=== PATIENT | female | born 1965 | race Caucasian/White ===

== ENCOUNTER 2020-01-03 07:31 | Outpatient (CLI) | payer BC, SELFPAY ==
--- NOTE | 2020-01-03 07:53 | MM_ITS ---
WS: [id number] BILATERAL DIGITAL SCREENING MAMMOGRAPHY WITH CAD CLINICAL INFORMATION: SCREENING HISTORY: Screening mammogram. No current complaints. COMPARISON: January 20, 2018 TECHNIQUE: Bilateral CC and MLO views. FINDINGS: Scattered fibroglandular densities bilaterally. No suspicious focal mass, asymmetry, calcifications, or architectural distortion. No evidence of malignancy. A few punctate calcifications. MM/[id number] IMPRESSION: BI-RADS: 2-Benign FOLLOW UP: 1 Year Follow-up Recommend return to annual screening mammography.
== END 2020-01-03 07:32 | disposition home or self-care (01) ==
LOC: RADSHAW 07:34
PROVIDERS: PCP Family Medicine; Visit Provider Family Medicine
DX: Z12.31 Encounter for screening mammogram for malignant neoplasm of breast (principal)
CPT/HCPCS: 77067

== ENCOUNTER 2021-03-23 07:36 | Outpatient (CLI) | payer OTHER, SELFPAY ==
--- NOTE | 2021-03-23 07:46 | MM_ITS ---
WS: [id number] BILATERAL SCREENING DIGITAL MAMMOGRAM WITH CAD HISTORY: SCREENING COMPARISON: 01/03/2020 and 01/20/2018 Bilateral CC and MLO views submitted. Computer aided detection analyzed. Breast composition: There are scattered areas of fibroglandular density. No suspicious masses, microc alcifications or architectural distortion. Benign calcifications in each breast. Long-term stability of a nodule in the upper outer quadrant of the RIGHT breast at a middle depth. MM/[id number] IMPRESSION: BI-RADS: 2-Benign FOLLOW UP: 1 Year Follow-up
== END 2021-03-23 07:37 | disposition home or self-care (01) ==
PROVIDERS: PCP Family Medicine; Visit Provider Family Medicine
DX: Z12.31 Encounter for screening mammogram for malignant neoplasm of breast (principal)
CPT/HCPCS: 77067

== ENCOUNTER 2022-09-12 16:43 | Emergency (ER) | payer OTHER, SELFPAY ==
[2022-09-12 16:43] VITALS: BP 156/89; PULSE 97; RESP 16; TEMP 36.9; O2SAT 99; BMI 29.8
--- NOTE | 2022-09-12 16:58 | W.ED.WOUNDLC ---
HPI - Wound/Laceration General: Chief Complaint: Wound/Laceration Stated Complaint: facial lac Time Seen by Provider: 09/12/22 16:56 History of Present Illness: 57-year-old female comes in today with laceration to the left facial cheek. Patient was working with one of her horses when it struck out at her catching her to her right facial cheek. Patient has a 5 cm facial laceration. Patient reports no loss of consciousness. Patient appears nontoxic. Patient has a history of high blood pressure. Patient does not recall her last tetanus. Review of Systems General: Reports: 10 or more systems reviewed and unremarkable except in HPI and below Skin/Breast: Reports: new lesions Neuro: Denies: headache(s) Physical Exam Const: COMMON NORMALS: alert HENMT: COMMON NORMALS: normocephalic, TM's normal bilaterally and Normal external nose present HEAD & SCALP: normocephalic FACE & SINUS: abrasion (Left eyebrow), ecchymosis (Left periorbital) and laceration (5 cm left facial cheek tissue contusion) FACE & SINUS IMAGES: 1. 5 cm laceration NOSE: Normal external nose present TYMPANIC MEMBRANE: TM's normal bilaterally MOUTH: Normal oral and palatal mucosa present THROAT: posterior oropharynx normal Neck/C-Spine: COMMON NORMALS: full ROM Resp: COMMON NORMALS: normal respiratory effort and clear to auscultation bilaterally AUSCULTATION: clear to auscultation bilaterally Cardio: COMMON NORMALS: regular rate RATE: regular rate GI: COMMON NORMALS: non-tender Back/Pelvis: COMMON NORMALS: thoracic and lumbar spine normal to inspection Extremity: COMMON NORMALS: full ROM Neuro: SENSORIUM/ORIENTATION: Yes alert Skin: TRAUMA: abrasion (Left brow and facial cheek) and laceration (5 cm left facial cheek) linear Procedures Laceration Laceration 1: Site: face Side (If applicable): left Size (cm): 5 Description: linear Local Anesthetic: lidocaine 1% and with epi Amount of anesthesia used (mL): 10 Pre-repair: wound explored and irrigated extensively (300 mL tap water) Skin layer closed with: vicryl Size (cm): 5-0 Number of sutures: 10 Technique: simple, interrupted (7) and horizontal mattress (3) Course Vital Signs: Vital signs: Vital Signs Temperature 98.4 F 09/12/22 16:43 Pulse Rate 91 09/12/22 17:30 Respiratory Rate 16 09/12/22 16:43 Blood Pressure 142/88 09/12/22 17:30 Pulse Oximetry 94 09/12/22 17:30 Oxygen Delivery Me thod Room Air 09/12/22 16:43 MDM - Wound/Laceration Medical Decision Making Patient comes in for injury to the left facial cheek. Patient has a 5 cm laceration to the left facial cheek. Patient has some dirt and debris within the wound. Some contusion of the tissue is noted. Subcutaneous tissue was lacerated to the bone with visualization of zygomatic bone. Bleeding is controlled. EOMs are intact. Nasal passages are clear. TM is normal. Patient moves neck without difficulty. No skull injury is noted. Some bruising is noted to the left brow. Differential diagnoses includes need for prophylaxis tetanus, need for prophylaxis antibiotic, fracture, laceration. CT of the facial bones noted no acute fractures. Wound was thoroughly irrigated with tap water and saline with approximately 300 mL. Debris was flushed from the wound. Patient was given 1 g of cefazolin. Patient be continued on doxycycline 100 mg twice a day for 10 days. Reviewed postprocedure care with patient with recommendations for further treatment and follow-up. Patient reported understanding and agreed to plan. Lab Data Radiology Impressions Face CT 09/12/22 17:01 IMPRESSION: No acute osseous abnormalities of the maxillofacial structures. Discharge Plan Discharge Patient Disposition: Home Clinical Impression: Laceration of face Qualifiers: Encounter type: initial encounter Qualified Code(s): S01.81XA - Laceration without foreign body of other part of head, initial encounter Condition: Stable Prescriptions: New doxycycline monohydrate 100 mg capsule 100 mg PO BID 10 Days Qty: 20 0RF hydrocodone-acetaminophen 5-325 mg tablet 1 tab PO Q6H PRN (Reason: pain (scale score 7-10)) Qty: 6 0RF Discharge Orders: Discharge ED (Routine); Ordered 09/12/22 Ordered By: Albert Pearl Referrals: Gordon Bueno MD [Primary Care Provider] - Discharge Diet: Usual diet Discharge Activity: Increase activity as tolerated Patient Instructions: Facial Laceration (ED), Opioid Safety Activity Restrictions/Additional Instructions: Keep wound clean and dry for the next 48 hours. After that you can use some antibiotic ointment to the wound if you like. Take doxycycline 100 mg twice a day for the next 10 days. Use acetaminophen and ibuprofen to control pain. Use hydrocodone for severe pain. Use ice packs to help with pain and swelling. Follow-up with primary care in 3 to 5 days for recheck. Return to ER for severe headache, fever greater than 100.4, inability to hold fluids down, or new concerns. Sutures can come out in 7 to 10 days, they are dissolvable and to come out on their own but can be removed after 7 to 10 days. Coding Level of Care Code ED [employer] for Carla Singleton
--- NOTE | 2022-09-12 17:01 | CTR_ITS ---
PROCEDURE INFORMATION: Exam: CT Maxillofacial Without Contrast Exam date and time: 09/12/2022 5:12 PM Age: 57 years old Clinical indication: Injury or trauma; Fall; Blunt trauma (contusions or hematomas); Cheek bone; Left; Additional info: Face injury TECHNIQUE: Imaging protocol: Computed tomography of the face without contrast. Radiation optimization: All CT scans at this facility use at least one of these dose optimization techniques: automated exposure control; mA and/or kV adjustment per patient size (includes targeted exams where dose is matched to clinical indication); or iterative reconstruction. REPORTING DATA: Count of CT and Cardiac NM exams in prior 12 months: This patient has received 0 known CTs and 0 known cardiac nuclear medicine studies in the 12 months prior to the current study. COMPARISON: No relevant prior studies available. RADIATION DOSE METRICS: Total DLP (mGy-cm): 606.78 FINDINGS: Orbital cavities: Orbits are normal. Globes are unremarkable. Bones/joints: No acute fracture. Paranasal sinuses: Normal. No air-fluid levels. Soft tissues: Laceration along the left cheek. CT/CT facial bones wo con* [id number] IMPRESSION: No acute osseous abnormalities of the maxillofacial structures.
[2022-09-12] MEDS: HYDROcodone-acetaminophen 5-325 mg Tablet 1 TAB PO (17:08)
[2022-09-12] MEDS: ceFAZolin 1,000 MG in water for injection-sterile 2.5 ML 2.5 MG IM (17:20)
[2022-09-12] MEDS: tetanus-dipt-pertussis 0.5 mL SDV IM (17:22)
[2022-09-12] MEDS: lidocaine-epi 1% 20 mL INJ 10 ML INJECTION (17:23)
[2022-09-12 17:30] VITALS: BP 142/88; PULSE 91; O2SAT 94
[2022-09-12 17:59] VITALS: BP 141/89; PULSE 89; O2SAT 96
== END 2022-09-12 18:01 | disposition home or self-care (01) ==
PROVIDERS: Emergency Provider Nurse Practitioner Family; PCP Family Medicine
DX: S01.412A Laceration without foreign body of left cheek and temporomandibular area, initial encounter (principal); W55.12XA Struck by horse, initial encounter; Z23 Encounter for immunization
CPT/HCPCS: 12013; 70486; 90471; 90715; 96372; 99284; J0690

== ENCOUNTER 2023-01-24 13:00 | Outpatient (CLI) | payer OTHER, SELFPAY ==
--- NOTE | 2023-01-24 13:35 | MM_ITS ---
WS: [id number] BILATERAL 3D TOMOSYNTHESIS DIGITAL SCREENING MAMMOGRAPHY WITH CAD CLINICAL INFORMATION: SCREENING HISTORY: Screening mammogram. No current complaints. COMPARISON: 03/23/2021 TECHNIQUE: Bilateral CC and MLO views. FINDINGS: Scattered fibroglandular densities bilaterally. No suspicious focal mass, asymmetry, calcifications, or architectural distortion. No evidence of malignancy. Few incidental punctate and lucent centered c alcifications. Long-term stability 7mm nodule in the upper outer quadrant of the RIGHT breast IMPRESSION: MM/[id number] BI-RADS: 2-Benign FOLLOW UP: 1 Year Follow-up Recommend return to annual screening mammography.
== END 2023-01-24 13:01 | disposition home or self-care (01) ==
LOC: RAD 13:00
PROVIDERS: PCP Family Medicine; Visit Provider Family Medicine
DX: Z12.31 Encounter for screening mammogram for malignant neoplasm of breast (principal)
CPT/HCPCS: 77063; 77067

== ENCOUNTER 2024-01-27 13:32 | Outpatient (CLI) | payer OTHER, SELFPAY ==
--- NOTE | 2024-01-27 13:37 | MM_ITS ---
WS: [id number] Bilateral screening 3D tomosynthesis digital mammogram, 01/27/2024 1:39 PM Clinical Data: SCREENING Comparison: 01/24/2023, 03/23/2021, 01/03/2020, 01/20/2018, 01/09/2017, 01/09/2016, 12/21/2014, 2014, 10/16/2011, 09/27/2009. Findings: No spiculated masses or clustered calcifications are seen. There are no secondary signs of carcinoma . There is a nodule in the upper outer quadrant right breast unchanged. MM/MM scr BI tomosynthesis [id number] Impression: Negative bilateral mammogram unchanged. Recommend annual screening mammograms. BIRADS: 1 - Negative. FOLLOW UP: 1 Year Follow-up DENSITY: There are scattered areas of fibroglandular density. The CAD title checker was used
== END 2024-01-27 13:33 | disposition home or self-care (01) ==
LOC: RAD 13:33
PROVIDERS: PCP Family Medicine; Visit Provider Family Medicine
DX: Z12.31 Encounter for screening mammogram for malignant neoplasm of breast (principal); N63.11 Unspecified lump in the right breast, upper outer quadrant
CPT/HCPCS: 77063; 77067